=== PATIENT | female | born 1985 | race Caucasian/White ===

== ENCOUNTER 2018-12-08 14:13 | Emergency (ER) | payer MEDICAID ==
--- NOTE | 2018-12-08 15:18 | PSYCHOLOGICAL NOTE ---
Psych Note - Psych Note Date seen by psych provider: 12/08/18 Time seen by psych provider: 14:45 Psych Note: Reason for consult: Self Harm Cutting Contact Permissions: Karen Aguillon (Do not disclose tox screen results) Patient is a 40 yo female presenting to the ED via EMS for c/o SI. Chart review shows no prior psych visits. Toxicology screen is negative for all substances. Patient locked herself in the bathroom and cut both wrists with a razor in an admitted suicide attempt. She says, it would be easier to just be explaining that she relapsed on heroin yesterday and her S/O and father of her 3 children threatened to send her to her sisters. She c/o I have no car, no job, and at my sister's I will have nothing - I don't want to be away from my kids. Patient reports "I'm so disappointed in myself. I don't want him to know". Her s/o found texts on her phone with her former dealer and said he was done and that she was going to her sister's. Patient has been in recovery for several months and was just released from incarceration in September. Per patient, she was in [facility] for driving without a license but went through bad withdrawals so sent for an evaluation to a state facility. Patient denies prior suicide attempts. Confronted about her clean toxicology patient reports that she abused her Suboxone. Patient is alert and oriented x 4. Mood is dysthymic with tearful affect. Patient endorses SI, and denies HI, and AV/H, does not appear to be responding to internal stimuli, and no delusions were noted. Conversational speech was WNL for rate, tone, and prosody though soft. Eye contact was intermittently maintained. Thought processes were linear and disorganized. Intellectual abilities were estimated within the average range. Attention/concentration was WNL while, insight, judgment, and impulse control were poor. Diagnosis: Unspecified Depressive Disorder Opiate Use Disorder, severe Medication recommendations as per psychiatric provider, Dr. Rogers are as follows: Impression/Plan: Patient is recommended for IVC due to risk of harm to self aeb patient cut both wrists after relapsing and stated "I would be better off ". Patient is 33 yo female with self-reported heroin dependence in recovery since September who relapsed and is disappointed in her self and fears being from her children so cut her wrists in an admitted attempt. Plan is to hold overnight for further observation and evaluation. Consulted Dr. Farrell in the care and treatment of this patient and ED physician who is in agreement with disposition and recommendation.
[2018-12-08 15:28] LABS: AMORPHOUS SEDIMENT,URINE TRACE /HPF; APPEARANCE,URINE CLOUDY; BILIRUBIN,URINE NEGATIVE (NEGATIVE); COLOR,URINE YELLOW; GLUCOSE, URINE NEGATIVE (NEGATIVE); KETONES,URINE NEGATIVE (NEGATIVE); LEUKOCYTE ESTERASE,URINE NEGATIVE (NEGATIVE); NITRITE,URINE NEGATIVE (NEGATIVE); PROTEIN,URINE NEGATIVE (NEGATIVE); URINE SPECIFIC GRAVITY 1.008; UROBILINOGEN,URINE NEGATIVE mg/dL (<2.0)
[2018-12-08 15:44] LABS: URINE AMPHETAMINES SCREEN NEGATIVE; URINE BARBITURATES SCREEN NEGATIVE; URINE BENZODIAZEPINES SCREEN NEGATIVE; URINE COCAINE SCREEN NEGATIVE; URINE MARIJUANA (THC) SCREEN NEGATIVE; URINE METHADONE SCREEN NEGATIVE; URINE PHENCYCLIDINE SCREEN NEGATIVE
[2018-12-08 16:07] LABS: ABSOLUTE BASOPHILS # (AUTO) 0.1 10^3/uL (0.0-0.2); ABSOLUTE EOSINOPHILS # (AUTO) 0.1 10^3/uL (0.0-0.6); ABSOLUTE LYMPHOCYTES (AUTO) 1.6 10^3/uL (0.5-4.7); ABSOLUTE MONOCYTES (AUTO) 0.5 10^3/uL (0.1-1.4); ABSOLUTE NEUT (AUTO) 4.4 10^3/uL (1.7-8.2); EOSINOPHILS % (AUTO) 1.4 % (0-6); HEMATOCRIT 41.6 % (36.0-47.0); HEMOGLOBIN 14.2 g/dL (12.0-15.5); LYMPHOCYTES % (AUTO) 23.5 % (13-45); MEAN CORPUSCULAR HEMOGLOBIN 30.5 pg (27.0-33.4); MEAN CORPUSCULAR HGB CONC 34.1 g/dL (32.0-36.0); MEAN CORPUSCULAR VOLUME 89 fl (80-97); MONOCYTES % (AUTO) 8.1 % (3-13); PLATELET COUNT 197 10^3/uL (150-450); RED BLOOD COUNT 4.65 10^6/uL (3.72-5.28); RED CELL DISTRIBUTION WIDTH 12.7 % (11.5-14.0); TOTAL CELLS COUNTED % (AUTO) 100 %; WHITE BLOOD COUNT 6.7 10^3/uL (4.0-10.5)
[2018-12-08 16:30] LABS: ALANINE AMINOTRANSFERASE 28 U/L (9-52); ALBUMIN 4.3 g/dL (3.5-5.0); ALKALINE PHOSPHATASE 170 U/L (38-126); ANION GAP 5 (5-19); ASPARTATE AMINO TRANSFERASE 38 U/L (14-36); BILIRUBIN,DIRECT 0.2 mg/dL (0.0-0.4); BILIRUBIN,TOTAL 0.4 mg/dL (0.2-1.3); BLOOD UREA NITROGEN 11 mg/dL (7-20); CARBON DIOXIDE 32 mmol/L (22-30); CHLORIDE 102 mmol/L (98-107); GLUCOSE 104 mg/dL (75-110); POTASSIUM 4.6 mmol/L (3.6-5.0); SODIUM 138.8 mmol/L (137-145); TOTAL PROTEIN 7.7 g/dL (6.3-8.2)
[2018-12-08 16:31] LABS: ALCOHOL < 10 mg/dL (NONE DETECTED)
[2018-12-08 16:32] LABS: ACETAMINOPHEN < 10 ug/mL (10-30); SALICYLATE < 1.0 mg/dL (2.0-20.0)
--- NOTE | 2018-12-08 17:47 | ER Document Report ---
Entered by KASSANDRA MASSEY SCRIBE 12/08/18 1604 Acting as scribe for:ROSIBLE LOPEZ MD ED Psych Disorder / Suicide - General Stated Complaint: PSYCH EVAL Time Seen by Provider: 12/08/18 14:29 Mode of Arrival: Ambulatory Information source: Patient Notes: 33-year-old female who presents to the emergency department today after a day attempted overdose last night on her Subutex. Patient also has self-inflicted lacerations to her bilateral wrists. Patient is tearful. Patient reported having argument with her significant other. She did try to overdose on her Subutex last night. When she woke up this morning. She took the razor blade part out of a typical shaving razor, and used the blade to lacerate her volar left and right forearms. - Related Data Allergies/Adverse Reactions: amoxicillin [From Augmentin] Allergy (Verified 12/08/18 19:48) clavulanic acid [From Augmentin] Allergy (Verified 12/08/18 19:48) Past Medical History - General Information source: Patient - Social History Smoking Status: Never Smoker Cigarette use (# per day): No Frequency of alcohol use: None Drug Abuse: None Lives with: Family Family History: Reviewed & Not Pertinent - Medical History Medical History: Negative Surgical Hx: Negative Review of Systems - Review of Systems Constitutional: No symptoms reported EENT: No symptoms reported Cardiovascular: No symptoms reported Respiratory: No symptoms reported Gastrointestinal: No symptoms reported Genitourinary: No symptoms reported Female Genitourinary: No symptoms reported Musculoskeletal: No symptoms reported Skin: No symptoms reported Hematologic/Lymphatic: No symptoms reported Neurological/Psychological: See HPI, Other - Methadone overdose, self-inflicted lacerations to bilateral wrists -: Yes All other systems reviewed and negative Physical Exam - Vital signs Vitals: Temp Pulse Resp BP Pulse Ox 98.3 F 74 17 115/74 100 12/09/18 03:14 12/09/18 03:14 12/09/18 03:14 12/09/18 03:14 12/09/18 03:14 - Notes Notes: Physical Exam: General: Alert. HEENT: Normocephalic. Atraumatic. PERRL. Extraocular movements intact. O ropharynx clear. Neck: Supple. Non-tender. Respiratory: No respiratory distress. Clear and equal breath sounds bilaterally. Cardiovascular: Regular rate and rhythm. Abdominal: Normal Inspection. Non-tender. No distension. Normal Bowel Sounds. Back: Non-tender. No deformity or step off. Extremities: Moves all four extremities. Upper extremities: See laceration repair notes. In addition to the lacerations noted in the procedure notes, there were several superficial lacerations not n eeding suturing, a few that would benefit from Steri-Strips. It does appear that she tried to carve some words into her left volar forearm. Lower extremities: Normal inspection. No edema. Normal ROM. Neurological: Normal cognition. AAOx4. Normal speech. Psychological: Tearful. Skin: Warm and dry without rashes. Course - Re-evaluation Re-evalutation: 12/08/18 20:17 PROCEDURE: The right forearm had 3 wounds that needed suturing to hold together due to their location and the likelihood that Steri-Strips would not work. At the volar wrist there were 2 lacerations approximately 1.5 cm long each. At the more proximal left volar forearm there was a 2-1/2 cm laceration. These wounds were cleaned with Shur-Clens. They were anesthetized with 1% lidocaine, using a total of 6 mL's. Each of the wounds were irrigated with 10 mL's of normal saline. There was no debridement needed. There was no debris or foreign bodies found. The 2 wounds at the wrist were each closed with (2) 4-0 nylon sutures. The more proximal left volar forearm wound was closed with (4) 4-0 nylon sutures. The right volar wrist laceration is approximately 2.5 cm. It was cleaned with Shur-Clens. The wound was anesthetized with 2-1/2 mL's of 1% lidocaine local. Wound was irrigated with 10 mL's of normal saline. Was no debridement needed. There was no debris or foreign body noted. The wound was closed with (3) 4-0 nylon sutures. - Vital Signs Vital signs: Temp Pulse Resp BP Pulse Ox 98.3 F 64 18 114/58 L 100 12/09/18 13:07 12/09/18 13:07 12/09/18 13:07 12/09/18 13:07 12/09/18 13:07 - Laboratory Result Diagrams: 12/08/18 15:48 12/08/18 15:48 Laboratory results interpreted by me: 12/08/18 15:48 Carbon Dioxide 32 H AST 38 H Alkaline Phosphatase 170 H Salicylates < 1.0 L Acetaminophen < 10 L - EKG Interpretation by Me EKG shows normal: Sinus rhythm, [place], Intervals, QRS Complexes. abnormal: ST-T Waves - Borderline anterior T abnormalities Rate: Normal - 74 Rhythm: NSR Discharge - Discharge Clinical Impression: Suicide attempt, Opiate dependence, continuous Overdose Qualifiers: Encounter type: initial encounter Injury intent: intentional self-harm Qualified Code(s): T50.902A - Poisoning by unspecified drugs, medicaments and biological substances, intentional self-harm, initial encounter Depression Qualifiers: Depression Type: unspecified Qualified Code(s): F32.9 - Major depressive disorder, single episode, unspecified Self-inflicted laceration of wrist Qualifiers: Encounter type: initial encounter Laterality: unspecified laterality Qualified Code(s): S61.519A - Laceration without foreign body of unspecified wrist, initial encounter Condition: Stable Disposition: PSYCH HOSP/UNIT Scribe Attestation: 12/08/18 16:05 I personally performed the services described in the documentation, reviewed and edited the documentation which was dictated to the scribe in my presence, and it accurately records my words and actions. I personally performed the services described in the documentation, reviewed and edited the documentation which was dictated to the scribe in my presence, and it accurately records my words and actions.
[2018-12-08] MEDS ORDERED: LIDOCAINE 1% INJ-PF (10 MG/ML) 30 ML SDV INJ ONE (18:25)
[2018-12-08] MEDS ORDERED: LIDOCAINE 1% INJ-PF (10 MG/ML) 30 ML SDV ONE (19:40)
[2018-12-08] MEDS ORDERED: IBUPROFEN 600 MG TABLET ONE (19:40)
[2018-12-08] MEDS ORDERED: ONDANSETRON 4 MG TAB.RAPDIS ONE (19:40)
[2018-12-08] MEDS ORDERED: IBUPROFEN 600 MG TABLET PO ONE (19:41)
[2018-12-08] MEDS ORDERED: ONDANSETRON HCL 8 MG TABLET PO ONE (19:41)
--- NOTE | 2018-12-08 19:49 | EKG REPORT ---
SEVERITY:- BORDERLINE ECG - SINUS RHYTHM BORDERLINE T ABNORMALITIES, ANTERIOR LEADS : Confirmed by: Aura Yeboah MD 08-Dec-2018 19:48:53
[2018-12-08] MEDS ORDERED: DIPHENHYDRAMINE HCL 50 MG/ML VIAL ONE (19:55)
[2018-12-08] MEDS ORDERED: DIPHENHYDRAMINE HCL 50 MG/ML VIAL IV ONE (19:59)
[2018-12-08] MEDS ORDERED: DIPHENHYDRAMINE HCL 50 MG/ML VIAL IM ONE (20:01)
[2018-12-09] MEDS ORDERED: IBUPROFEN 600 MG TABLET PO ONE (13:28)
--- NOTE | 2018-12-09 13:52 | ER Document Report ---
Doctor's Note Notes: 12/09/18 13:51 The patient has been accepted at [facility] Dr. Pena. She was recently given some ibuprofen for her chronic migraine she complains of. She was requesting her Subutex, but we will hold off on narcotic management of her problems for the time being.
[2018-12-09 13:53] VITALS: BP 113/65
--- NOTE | 2019-01-04 11:07 | PSYCHOLOGICAL NOTE ---
Psych Note - Psych Note Date seen by psych provider: 12/09/18 Time seen by psych provider: 10:35 Psych Note: Reason for consult: Self Harm Cutting Contact Permissions: Karen Aguillon (Do not disclose tox screen results) Patient is a 40 yo female presenting to the ED via EMS for c/o SI. Check in conducted with patient: Patient continues to demonstrate labile mood with tearful affect. She continues to report suicidal ideation and states he is "tired of life." Minimally engages with clinician. Diagnosis: Unspecified Depressive Disorder Opiate Use Disorder, severe Impression/Plan: Patient is recommended for continued IVC. Patient continues to have little e ngagement with behavioral health team. Patient reports that she is "tired of life" and continues to demonstrate both labile mood and tearful affect. Patient was accepted to [facility]; transportation was requested. Dr. Farrell was consulted and the care management of this patient; attending physicians in agreement with recommendations and disposition.
== END 2018-12-09 14:00 ==
LOC: ER 14:13 → EEVIPCON 14:13 → ER 12-09 14:00
DX: T40.4X2A Poisoning by other synthetic narcotics, intentional self-harm, initial encounter (principal); S61.512A Laceration without foreign body of left wrist, initial encounter; S61.511A Laceration without foreign body of right wrist, initial encounter; X78.8XXA Intentional self-harm by other sharp object, initial encounter; Z88.0 Allergy status to penicillin
CPT/HCPCS: 93005; 99285; 96372; 36415; 80307 ×4; 84703; 85025; 80053; 81001; 93010; 12004; J1200; J3490 ×3; S0119